=== PATIENT | female | born 1995 | race Caucasian/White ===

== ENCOUNTER 2017-04-29 22:15 | Emergency (ER) | payer OTHER ==
[~2017-04-29] VITALS: Ht 149.9 cm; Wt 63.3 kg
[~2017-04-29 22:15] MED LIST: AMOXICILLIN875 MG PO; CITALOPRAM HBR20 MG PO; CITALOPRAM PO; MACROBID100 MG PO; NAPROSYN500 MG PO; PHENERGAN25 MG PR; PROMETHAZINE HC25 M1 PO; ZOFRAN4 MG PO
[2017-04-30] MEDS ORDERED: BACTRIM,SEPT1 TABLET PO (00:11)
[2017-04-30] MEDS ORDERED: PERCOCET 5/31 TABLET PO (00:12)
[2017-04-30 00:28] VITALS: BP 128/66
[2017-05-01] MEDS ORDERED: KEFLEX500 MG PO (16:33)
[2017-05-01] MEDS ORDERED: PERCOCET 5/31 TABLET PO (16:33)
[2017-05-01] MEDS ORDERED: BACTRIM,SEPT1 TABLET PO (16:33)
== END 2017-04-30 00:34 | disposition home or self-care (01) ==
LOC: EME 22:15 → EXP 22:15
DX: L03.116 Cellulitis of left lower limb (principal)
CPT/HCPCS: 99281; 99284

== ENCOUNTER 2017-05-01 14:33 | Emergency (ER) | payer OTHER ==
[~2017-05-01] VITALS: Ht 149.9 cm; Wt 62.6 kg
[~2017-05-01 14:33] MED LIST changes: +BACTRIM,SEPT1 TABLET PO; +PERCOCET 5/31 TABLET PO
[2017-05-01] MEDS ORDERED: BACTRIM,SEPT1 TABLET PO (16:33)
[2017-05-01] MEDS ORDERED: KEFLEX500 MG PO (16:33)
[2017-05-01] MEDS ORDERED: PERCOCET 5/31 TABLET PO (16:33)
[2017-05-01 16:54] VITALS: BP 124/84
== END 2017-05-01 16:55 | disposition home or self-care (01) ==
LOC: EME 14:33
PROC: 0H9JXZZ Drainage of Left Upper Leg Skin, External Approach (ICD-10-PCS; principal; 2017-05-01)
DX: L02.416 Cutaneous abscess of left lower limb (principal); G43.909 Migraine, unspecified, not intractable, without status migrainosus
CPT/HCPCS: 99281; 99284; J1885; J2270

== ENCOUNTER 2017-05-04 10:55 | Emergency (ER) | payer OTHER ==
[~2017-05-04] VITALS: Ht 149.9 cm; Wt 65.9 kg
[~2017-05-04 10:55] MED LIST changes: +KEFLEX500 MG PO
[2017-05-04 13:35] VITALS: BP 100/68
== END 2017-05-04 13:35 | disposition home or self-care (01) ==
LOC: EME 10:55 → RME 10:55
DX: L02.416 Cutaneous abscess of left lower limb (principal); S70.362D Insect bite (nonvenomous), left thigh, subsequent encounter; W57.XXXD Bitten or stung by nonvenomous insect and other nonvenomous arthropods, subsequent encounter; Z48.01 Encounter for change or removal of surgical wound dressing
CPT/HCPCS: 99281; 99284

== ENCOUNTER 2017-05-08 23:55 | Emergency (ER) | payer OTHER ==
[~2017-05-08] VITALS: Ht 149.9 cm; Wt 62.2 kg
[2017-05-09] MEDS ORDERED: CEPHALEXIN500 MG PO (00:20)
[2017-05-09] MEDS ORDERED: BACTRIM,SEPT1 TABLET PO (00:21)
[2017-05-09 00:33] LABS: ADD MIUA? YES; BILIRUBIN NEGATIVE; BLOOD NEGATIVE; COLOR YELLOW ((YELLOW)); GLUCOSE (STRIP) NEGATIVE; KETONES NEGATIVE; LEUKOCYTES MODERATE; NITRITE NEGATIVE; PROTEIN (STRIP) 30; UROBILINOGEN 0.2 MG/DL (0.2-1.0)
[2017-05-09 00:45] LABS: HEMATOCRIT 36.4 % (36.0-46.0); MCH 30.5 PG (29.0-34.0); MCHC 33.8 G/DL (30.0-36.0); MCV 90.3 FL (83-99); PLATELET COUNT 297 K/uL (156-360); RBC DIS.WIDTH-SD 39.7 % (39-53); RED BLOOD COUNT 4.03 M/uL (3.80-5.20); WHITE BLOOD COUNT 9.4 K/uL (4.1-10.2)
[2017-05-09 01:01] LABS: CHLORIDE 104 mEq/L (99-109); POTASSIUM 4.1 mEq/L (3.7-5.4); SODIUM 137 mEq/L (136-147)
[2017-05-09 01:03] LABS: BACTERIA RARE /HPF; EPITHELIAL CELLS RARE /HPF; MUCUS TRACE /LPF; RED BLOOD CELLS 0-5 /HPF (0-5); UCUL ADDED? YES
[2017-05-09 01:03] LABS: GLUCOSE 116 mg/dL (70-99)
[2017-05-09 01:05] LABS: ANION GAP 8 MEQ/L (2-14); TOTAL BILIRUBIN 0.2 mg/dL (0.0-1.0)
[2017-05-09 01:07] LABS: ALKALINE PHOSPHATASE 59 IU/L (3-129); GFR ESTIMATE (CALCULATED) > 59 mL/min/
[2017-05-09 01:08] LABS: UREA NITROGEN (BUN) 13 mg/dL (9-23)
[2017-05-09 01:18] LABS: QUANTITATIVE HCG < 4.0 MIU/ML
[2017-05-09] MEDS ORDERED: MACROBID100 MG PO (02:42)
[2017-05-09 02:48] VITALS: BP 118/78
[2017-05-09] MEDS ORDERED: ZOFRAN ODT4 MG PO (02:51)
[2017-05-09] MEDS ORDERED: MOTRIN800 MG PO (03:03)
== END 2017-05-09 03:10 | disposition home or self-care (01) ==
LOC: EME 23:55
PROVIDERS: Physician Assistant
DX: N39.0 Urinary tract infection, site not specified (principal); R10.30 Lower abdominal pain, unspecified
CPT/HCPCS: 76856; 80053; 81003; 84702; 85027; 87086; 93005; 99281; 99285; J2270; J2405; J7030

== ENCOUNTER 2017-09-06 11:11 | Emergency (ER) | payer OTHER ==
[~2017-09-06] VITALS: Ht 180.3 cm; Wt 68.8 kg
[~2017-09-06 11:11] MED LIST changes: +CEPHALEXIN500 MG PO; +MOTRIN800 MG PO; +ZOFRAN ODT4 MG PO
[2017-09-06 11:43] LABS: HEMATOCRIT 40.5 % (36.0-46.0); MCH 30.9 PG (29.0-34.0); MCHC 33.8 G/DL (30.0-36.0); MCV 91.4 FL (83-99); MEAN PLAT.VOLUME 9.3 uM^3 (9.5-12.4); PLATELET COUNT 236 K/uL (156-360); RBC DIS.WIDTH-CV 11.9 % (11.8-14.6); RBC DIS.WIDTH-SD 39.8 % (39-53); RED BLOOD COUNT 4.43 M/uL (3.80-5.20); WHITE BLOOD COUNT 5.3 K/uL (4.1-10.2)
[2017-09-06 11:51] LABS: CHLORIDE 106 mEq/L (99-109); POTASSIUM 3.8 mEq/L (3.7-5.4); SODIUM 140 mEq/L (136-147)
[2017-09-06 11:53] LABS: GLUCOSE 93 mg/dL (70-99)
[2017-09-06 11:55] LABS: ANION GAP 8 MEQ/L (2-14); TOTAL BILIRUBIN 0.4 mg/dL (0.0-1.0)
[2017-09-06 11:57] LABS: ALKALINE PHOSPHATASE 58 IU/L (3-129); GFR ESTIMATE (CALCULATED) > 59 mL/min/
[2017-09-06 11:58] LABS: UREA NITROGEN (BUN) 9 mg/dL (9-23)
[2017-09-06 12:08] LABS: QUANTITATIVE HCG 305.3 MIU/ML
[2017-09-06 13:04] LABS: BILIRUBIN NEGATIVE; BLOOD NEGATIVE; COLOR YELLOW ((YELLOW)); GLUCOSE (STRIP) NEGATIVE; KETONES NEGATIVE; LEUKOCYTES NEGATIVE; NITRITE NEGATIVE; PROTEIN (STRIP) NEGATIVE; SPECIFIC GRAVITY 1.019 (1.000-1.030); UROBILINOGEN 0.2 MG/DL (0.2-1.0)
[2017-09-06 13:07] LABS: ADD MIUA? NO; UCUL ADDED? NO
[2017-09-06 14:20] VITALS: BP 118/65
== END 2017-09-06 14:21 | disposition home or self-care (01) ==
LOC: EME 11:11
DX: Z32.01 Encounter for pregnancy test, result positive (principal); N93.9 Abnormal uterine and vaginal bleeding, unspecified
CPT/HCPCS: 80053; 81003; 84702; 85027; 99281; 99284

== ENCOUNTER 2017-10-23 20:15 | Emergency (ER) | payer OTHER ==
[~2017-10-23] VITALS: Ht 149.9 cm; Wt 69.6 kg
[2017-10-23 20:50] LABS: HEMATOCRIT 36.7 % (36.0-46.0); HEMOGLOBIN 12.3 G/DL (11.9-15.5); MCH 30.2 PG (29.0-34.0); MCHC 33.5 G/DL (30.0-36.0); MCV 90.2 FL (83-99); PLATELET COUNT 215 K/uL (156-360); RBC DIS.WIDTH-CV 11.9 % (11.8-14.6); RBC DIS.WIDTH-SD 39.7 % (39-53); RED BLOOD COUNT 4.07 M/uL (3.80-5.20); WHITE BLOOD COUNT 3.5 K/uL (4.1-10.2)
[2017-10-23 20:51] LABS: APPEARANCE CLEAR ((CLEAR)); BILIRUBIN NEGATIVE; BLOOD NEGATIVE; COLOR YELLOW ((YELLOW)); GLUCOSE (STRIP) NEGATIVE; KETONES NEGATIVE; LEUKOCYTES NEGATIVE; NITRITE NEGATIVE; PROTEIN (STRIP) 30; SPECIFIC GRAVITY 1.031 (1.000-1.030); UCUL ADDED? NO
[2017-10-23 20:59] LABS: CHLORIDE 106 mEq/L (99-109); POTASSIUM 3.5 mEq/L (3.7-5.4); SODIUM 139 mEq/L (136-147)
[2017-10-23 21:01] LABS: GLUCOSE 88 mg/dL (70-99); TOTAL PROTEIN 7.1 g/dL (6.4-8.3)
[2017-10-23 21:03] LABS: TOTAL BILIRUBIN 0.2 mg/dL (0.0-1.0)
[2017-10-23 21:04] LABS: ALKALINE PHOSPHATASE 56 IU/L (3-129)
[2017-10-23 21:05] LABS: CREATININE 0.7 mg/dL (0.6-1.3); GFR ESTIMATE (CALCULATED) > 59 mL/min/
[2017-10-23 21:06] LABS: AST (GOT) 21 IU/L (2-34); UREA NITROGEN (BUN) 8 mg/dL (9-23)
[2017-10-23 21:08] LABS: ALT (GPT) 17 IU/L (3-49)
[2017-10-23 21:18] LABS: QUANTITATIVE HCG < 4.0 MIU/ML
[2017-10-23] MEDS ORDERED: ZOFRAN ODT4 MG PO (22:17)
[2017-10-23 22:54] VITALS: BP 121/84
== END 2017-10-23 23:05 | disposition home or self-care (01) ==
LOC: EME 20:15
DX: A08.4 Viral intestinal infection, unspecified (principal); M79.1 Myalgia; R51 Headache
CPT/HCPCS: 80053; 81003; 84702; 85027; J1885

== ENCOUNTER 2018-02-13 09:55 | Emergency (ER) | payer OTHER ==
[~2018-02-13] VITALS: Ht 149.9 cm; Wt 70.4 kg
[2018-02-13] MEDS ORDERED: ZOFRAN ODT4 MG PO (12:15)
[2018-02-13] MEDS ORDERED: FIORICET 50-301 EAC1 PO (12:15)
[2018-02-13 12:42] VITALS: BP 109/56
== END 2018-02-13 12:44 | disposition home or self-care (01) ==
LOC: EME 09:55
DX: G43.909 Migraine, unspecified, not intractable, without status migrainosus (principal); Z86.69 Personal history of other diseases of the nervous system and sense organs; Z87.42 Personal history of other diseases of the female genital tract
CPT/HCPCS: 99281; 99284; J1200; J1885; J2765; J7030